=== PATIENT | female | born 1945 | race Caucasian/White ===

== ENCOUNTER → 2018-01-03 | Outpatient (CLI) | payer MEDICARE ==
[~2018-01-03] MED LIST: ASP325T PO; MULT-608 PO; TRIA1TAB5 PO; VENL75CA PO
--- NOTE | 2018-01-03 10:01 | Diagnostic Imaging Report ---
INDICATION: Disorientation, falling, left chest wall pain. FINDINGS: There is no lung contusion, pneumothorax or hemothorax. There is no failure pattern. There is no free air beneath the diaphragms. Cardiomediastinal and hilar contours appeared unremarkable. No displaced chest wall fracture deformity. No bony destructive process. No evidence for pleural hematoma. IMPRESSION: No acute finding revealed at frontal chest and left rib detailed series. Dictated by: Dictated on workstation # [id number]
--- NOTE | 2018-01-03 12:19 | Diagnostic Imaging Report ---
INDICATION: Routine screening. COMPARISON: 12/14/2012 and 07/14/2011. TECHNIQUE: 2D and 3D bilateral screening mammography was performed with CAD. FINDINGS: Scattered fibroglandular densities are identified bilaterally. Benign calcifications are noted. No mass or malignant appearing microcalcifications are seen. The axillae are unremarkable. IMPRESSION: No mammographic features suspicious for malignancy are identified. ACR BI-RADS Category 2: Benign findings. Result letter will be mailed to the patient. Note: At least 10% of breast cancer is not imaged by mammography. Dictated by: Dictated on workstation # [id number]
== END ==
LOC: RAD 08:00
PROVIDERS: ATTEND Internal Medicine
DX: Z12.31 Encounter for screening mammogram for malignant neoplasm of breast (principal); R41.0 Disorientation, unspecified; R07.89 Other chest pain; W19.XXXA Unspecified fall, initial encounter
CPT/HCPCS: 71101; 77067